=== PATIENT | female | born 1950 | race Caucasian/White ===

== ENCOUNTER 2024-12-09 15:24 | Emergency (ER) | payer MEDICARE ==
[~2024-12-09] VITALS: Ht 157.5 cm; Wt 54.4 kg
[2024-12-09] MEDS: ACETAMINOPHEN 325 MG TAB PO ONE (17:53)
[2024-12-09 18:37] VITALS: PULSE 79; RESP 16; TEMP 98.1; O2SAT 99
== END 2024-12-09 18:43 ==
LOC: ER 15:29
DX: M54.2 Cervicalgia (principal); M54.50 Low back pain, unspecified; W18.30XA Fall on same level, unspecified, initial encounter; Y93.01 Activity, walking, marching and hiking; Y92.89 Other specified places as the place of occurrence of the external cause; F03.90 Unspecified dementia, unspecified severity, without behavioral disturbance, psychotic disturbance, mood disturbance, and anxiety; E78.5 Hyperlipidemia, unspecified; J44.9 Chronic obstructive pulmonary disease, unspecified; I25.10 Atherosclerotic heart disease of native coronary artery without angina pectoris; F41.9 Anxiety disorder, unspecified; F32.A Depression, unspecified
CPT/HCPCS: 70450; 72125; 72128; 72131; 72192; 99284